=== PATIENT | male | born 2000 | race Caucasian/White ===

== ENCOUNTER 2024-03-01 15:53 | Emergency (ER) | payer OTHER ==
[~2024-03-01] VITALS: Ht 177.8 cm; Wt 89.6 kg
[2024-03-01] MEDS ORDERED: PROCHLORPERAZINE EDISYLATE 10 MG/2 ML VIAL IV ONE (16:30)
[2024-03-01] MEDS ORDERED: PROGESTERONE100 MG PO (16:38)
[2024-03-01] MEDS ORDERED: BIKTARVY 50-201 EACH PO (16:39)
[2024-03-01] MEDS ORDERED: ESTRADIOL2 MG PO (16:39)
[2024-03-01] MEDS ORDERED: SPIRONOLACTONE50 MG PO (16:39)
[2024-03-01] MEDS ORDERED: FLUVOXAMINE MA100 MG PO (16:39)
[2024-03-01] MEDS ORDERED: BUSPIRONE HCL10 MG PO (16:40)
[2024-03-01 16:53] LABS: BASOPHILS 0.1 % (0-2); EOSINOPHILS 0.4 % (0-6); HEMOGLOBIN 16.5 g/dL (12.0-18.0); LYMPHOCYTES 3.8 % (24-44); MCH 32.7 (27-36); MCHC 34.4 g/dl (30-36); MONOCYTES 5.4 % (0-12); NEUTROPHILS 90.3 % (39-80); PLATELET COUNT 255 K/uL (140-440); RBC 5.05 M/ul (4.3-5.7); RDW 12.5 (10.5-15.0)
[2024-03-01 17:08] LABS: ALBUMIN/GLOBULIN RATIO 1.03 (1.1-2.4); ANION GAP 14.9 (7-21); BILIRUBIN, TOTAL 1.8 ng/dL (0.2-1.0); BUN/CREATININE RATIO 11.71 (6.0-28.6); CALCIUM 8.9 mg/dL (8.5-10.1); CREATININE, SERUM 1.11 mg/dL (0.70-1.30); MAGNESIUM 1.7 mg/dL (1.8-2.4); POTASSIUM 3.9 mmol/L (3.5-5.1); PROTEIN, TOTAL 7.9 g/dL (6.4-8.2)
[2024-03-01] MEDS ORDERED: MAGNESIUM OXIDE 400 MG TABLET PO ONE (17:45)
[2024-03-01] MEDS ORDERED: ONDANSETRON 4 MG HOME.PACK SL ONE (18:00)
[2024-03-01 18:09] VITALS: BP 110/78
== END 2024-03-01 18:09 | disposition home or self-care (01) ==
LOC: ED 15:53
PROVIDERS: Family Medicine
DX: T51.0X1A Toxic effect of ethanol, accidental (unintentional), initial encounter (principal); R11.2 Nausea with vomiting, unspecified; Z79.899 Other long term (current) drug therapy
CPT/HCPCS: 36415; 80053; 83690; 83735; 85025; 96374; 99284-25; A9270; J0780